=== PATIENT | male | born 2000 | race Two or more races ===

== ENCOUNTER 2025-05-06 09:33 | Emergency (ER) | payer SELFPAY ==
--- NOTE | 2025-05-06 09:40 | PD.EDMEDCL ---
ED Medical Clearance RME/HPI General Chief complaint: Medical Clearance Stated complaint: MEDICAL CLEARENCE Time Seen by Provider: 05/06/25 09:39 Arrival date/time: 05/06/25 09:33 Limitations: other (limited by patient refusal) RME / HPI RME / HPI Narrative: DR. THOMPSON MAIN ED EVALUATION: 24-year-old male with unknown medical history was brought in by police from long-term for altered mentation and refusal of vitals. 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 He appears oriented but is uncooperative and refusing medical evaluation. No additional complaints reported. He is refusing all treatment, vitals, and studies. Related Information Allergies Allergy/AdvReac Type Severity Reaction Status Date / Time NKA* Allergy Uncoded 09/18/13 19:31 Review of Systems Review of Systems Systems Reviewed: All systems reviewed, normal except as documented ED Exam General Limitations: Present other (limited by patient refusal) General appearance: Present alert and in no apparent distress Head Head exam: Present atraumatic, normocephalic and normal inspection Eye Eye exam: Present normal appearance ENT ENT exam: Present normal exam Neck Neck exam: Present normal inspection and full ROM Chest Chest inspection: Present normal inspection and symmetric chest wall rise Respiratory Respiratory exam: Present normal lung sounds bilaterally Extremities Exam Extremities exam: Present normal inspection and full ROM Back Exam Back exam: Present normal inspection and full ROM Neurological Exam Neurological exam: Present alert, oriented X3 and CN II-XII intact Psychiatric Psychiatric exam: Present other (uncooperative behavior and refusal of care) Skin Skin exam: Present warm, dry, intact and normal color Course Quality Measures none Medical Clearance [facility] Narrative MDM Narrative:: IKatharine am scribing for and in the presence of Dr. Thompson. 24-year-old male with altered mentation and refusal of vitals and questions. Appears oriented but uncooperative. Differential diagnoses include intoxication with alcohol, intoxication with drugs, and behavioral refusal. Assessment for possible intoxication versus behavioral refusal. Plan is to discharge as patient is refusing all medical attention, studies, and interventions. Patient stable for discharge back to police custody. Patient data External records reviewed:: None (no previous visits) Clinical information provided by:: patient and law enforcement Social determinants that could affect healthcare access:: none (none known) Patient has the following chronic illnesses:: No known PMHx, surgeries, daily medications, or known allergies. How is presenting disease/condition affected by chronic disease/condition?: no chronic disease Evaluation data The following diagnostics were reviewed and interpreted by me:: other (specify) (none) Lab and/or radiology exams considered but not ordered:: none Interpretation Summary: See MDM narrative above. Medications / Prescriptions Medications or Prescriptions considered but not ordered:: none Medication administrations:: none Consultations Consultation(s) initiated? (list below): No Diagnosis Medical Clearance Differential Diagnosis: other (intoxication with alcohol, intoxication with drugs, and behavioral refusal) Most likely diagnosis given after review of the tests above:: Intoxication Admission Indicated Admission indicated?: not indicated Admission Request Was there a request for admission?: No Disposition Plan Disposition Plan: Discharge (to long-term) Discharge Attestation Discharge Attestation: The patient and all family members were given an opportunity to ask questions and understood the discharge instructions. Discharge instructions specifically effects, indications for sooner follow up or return to the emergency department, and the expected course of current diagnosis. Patient condition: Stable Discharge Plan Plan Patient Disposition: [facility]/Court/Law Patient condition on transfer: Stable Problem List Clinical Impression: Intoxication Patient/Caregiver Discharge Instructions Education Materials: ED Alcohol Intoxication Print Language: Faroese
--- NOTE | 2025-05-06 09:40 | PC.NURSE ---
PATIENT ARRIVED ED VIA [facility] FOR MEDICAL CLEARANCE. PATIENT REFUSING TREATMENT AT THIS TIME. DR. SHARPE ATTEMPTING TO SPEAK WITH PATIENT. PATIENT REFUSING TO DO VITALS.
== END 2025-05-06 09:45 ==
LOC: SERX 09:42
PROVIDERS: Emergency Provider Emergency Medicine
DX: Z02.89 Encounter for other administrative examinations (principal); F10.129 Alcohol abuse with intoxication, unspecified
CPT/HCPCS: 99281